=== PATIENT | male | born 2000 | race Two or more races ===

== ENCOUNTER 2022-02-28 09:56 | Emergency (ER) | payer BC, OTHER ==
[~2022-02-28] VITALS: Ht 170.2 cm; Wt 45.0 kg
[2022-02-28] MEDS ORDERED: PROCHLORPERAZINE EDISYLATE 5 MG/ML 2ML VIAL IV ONE (11:15)
[2022-02-28] MEDS ORDERED: SODIUM CHLORIDE 0.9% 1,000 ML IVB ONE (11:15)
[2022-02-28] MEDS ORDERED: MORPHINE SULFATE 4 MG/ML SYR/VIAL IV ONE (11:15)
[2022-02-28 11:55] LABS: Basophils # (auto) 0 10 ^3/uL (0-0.2); Basophils % (auto) 0.3 % (0.0-2.0); Eosinophils # (auto) 0 10 ^3/uL (0-0.8); Hematocrit 46.1 % (41.0-53.0); Lymphocytes # (auto) 1.8 10 ^3/uL (0.4-5.4); Lymphocytes % (auto) 19.2 % (10.0-50.0); Mean Corpuscular Hemoglobin 27.2 pg (28.0-32.0); Mean Corpuscular Hgb Conc. 32.6 g/dL (32.0-36.0); Mean Corpuscular Volume 83.2 fL (80.0-100.0); Monocytes # (auto) 1.4 10 ^3/uL (0-1.3); Monocytes % (auto) 15.4 % (0.0-12.0); Neutrophils # (auto) 6.1 10 ^3/uL (1.6-8.6); Neutrophils % (auto) 65.1 % (37.0-80.0); Nucleated Red Blood Cells % 0.2 %; Red Blood Cells 5.54 10^6/uL (4.5-5.90); Red Cell Distribution Width 14.9 % (11.8-14.3); White Blood Cell 9.3 10^3/uL (4.4-10.8)
[2022-02-28 12:56] LABS: Albumin 4.1 g/dL (3.4-5.0); Calcium 9.3 mg/dL (8.5-10.1); Potassium 4.3 mmol/L (3.5-5.1)
[2022-02-28 13:02] LABS: Alcohol, Urine < 3.0 mg/dL (0-10); Amphetamine Screen, Urine NEGATIVE (NEGATIVE); Barbiturate Scree,Urine NEGATIVE (NEGATIVE); Benzodiazephine Screen, Urine NEGATIVE (NEGATIVE); Cannabinoid Screen, Urine NEGATIVE (NEGATIVE); Cocaine Screen, Urine NEGATIVE (NEGATIVE); Opiate Scree,Urine NEGATIVE (NEGATIVE); Phencyclidine Screen, Urine NEGATIVE (NEGATIVE)
[2022-02-28 13:07] LABS: BUN/Creatinine Ratio 21.4; Bilirubin, Total 1.3 mg/dL (0.2-1.0); Total Protein 8.1 g/dL (6.4-8.2)
[2022-02-28 13:22] LABS: Urine Bacteria NONE SEEN /hpf (None Seen); Urine Blood Negative /uL (Negative); Urine Mucus FEW (None Seen); Urine Specific Gravity 1.037 (1.001-1.035); Urine WBC 2 /hpf (0 - 3)
[2022-02-28] MEDS ORDERED: PANT40TA2 PO (16:01)
[2022-02-28] MEDS ORDERED: ONDA-144 PO (16:01)
[2022-02-28 16:46] VITALS: BP 108/58
== END 2022-02-28 16:46 | disposition home or self-care (01) ==
LOC: ER 09:56
DX: R10.84 Generalized abdominal pain (principal); R11.2 Nausea with vomiting, unspecified; E86.0 Dehydration
CPT/HCPCS: 36415; 74176; 80053; 80307; 81001; 82150; 83690; 85025; 96361; 96374; 99284; J0780; J7030

== ENCOUNTER → 2022-03-25 | Outpatient (CLI) | payer BC ==
[~2022-03-25] MED LIST: ONDA-144 PO; PANT40TA2 PO
[2022-03-25 10:28] LABS: Basophils # (auto) 0 10 ^3/uL (0-0.2); Basophils % (auto) 0.7 % (0.0-2.0); Eosinophils # (auto) 0.2 10 ^3/uL (0-0.8); Eosinophils % (auto) 3.6 % (0.0-7.0); Hematocrit 44.1 % (41.0-53.0); Hemoglobin 14.1 g/dL (13.5-17.5); Lymphocytes % (auto) 36.7 % (10.0-50.0); Mean Corpuscular Hgb Conc. 32.1 g/dL (32.0-36.0); Mean Corpuscular Volume 84.3 fL (80.0-100.0); Monocytes # (auto) 0.7 10 ^3/uL (0-1.3); Monocytes % (auto) 12.6 % (0.0-12.0); Neutrophils # (auto) 2.5 10 ^3/uL (1.6-8.6); Neutrophils % (auto) 46.4 % (37.0-80.0); Nucleated Red Blood Cells % 0.2 %; Red Blood Cells 5.23 10^6/uL (4.5-5.90); Red Cell Distribution Width 15.3 % (11.8-14.3); White Blood Cell 5.4 10^3/uL (4.4-10.8)
[2022-03-25 10:56] LABS: Potassium 3.5 mmol/L (3.5-5.1)
[2022-03-25 11:01] LABS: Albumin 4.1 g/dL (3.4-5.0); BUN/Creatinine Ratio 21.8; Calcium 9.2 mg/dL (8.5-10.1); Total Protein 7.6 g/dL (6.4-8.2)
== END | disposition home or self-care (01) ==
LOC: LAB 10:12
PROVIDERS: ATTEND Nurse Practitioner Family
DX: R63.4 Abnormal weight loss (principal)
CPT/HCPCS: 36415; 80053; 84439; 84443; 85025

== ENCOUNTER → 2022-03-29 | Outpatient (CLI) | payer BC | END | disposition home or self-care (01) | LOC: XYW 08:43 | PROVIDERS: ATTEND Nurse Practitioner Family | DX: M95.4 Acquired deformity of chest and rib (principal) | CPT/HCPCS: 93306 ==

== ENCOUNTER 2024-12-05 18:22 | Emergency (ER) | payer OTHER, MEDICAID ==
[~2024-12-05] VITALS: Ht 172.7 cm; Wt 56.8 kg
--- NOTE | 2024-12-05 18:53 | ED.PDOC ---
History of Present Illness HPI Comments 24-year-old male with a history of autism spectrum disorder, migraines and asthma brought in by EMS from his workplace after a syncopal episode. 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 He had a witnessed syncopal episode, reported by coworkers to have fallen to his knees but was caught by co workers and assisted to the ground. Patient denies any head or other injury. Patient was reportedly unconscious for approximately 2 minutes before spontaneously regaining consciousness. Currently patient is complaining of an occipital headache. He does have history of migraines and a "brain cyst", however states the current pain is not typical of his migraines. Blood sugar on scene was 79, with a blood pressure of 113/78 mm Hg. Chief Complaint: Syncope Time Seen by MD: 19:02 Reviewed Notes: Nurses Notes Allergies: Coded Allergies: NO KNOWN ALLERGIES (Unverified , 02/28/22) Home Meds Active Scripts Ondansetron (Zofran) 4 Mg Tab, 1 TAB PO Q6HR, #20 TAB Prov:DOLLY MENDES MD 02/28/22 Pantoprazole Sodium Sesquihydr (Protonix) 40 Mg Tab, 40 MG PO DAILY, #30 TAB Prov:DOLYL MENDES MD 02/28/22 Information Source: Patient, Emergency Med Personnel Mode of Arrival: EMS Severity: Moderate Timing: Minutes Prehospital treatment: Accucheck, IVF Past Medical History PAST MEDICAL HISTORY: Asthma Past Medical History (Other): Migraine headaches, Brain Cyst, Autism spectrum disorder Surgical History: Denies all surgeries Family History Family History: Reviewed,noncontributory to illness Social History Smoker: Non-Smoker Alcohol: Occasionally Drugs: Denies Drug Use Lives In: Home Constitutional: reports: diaphoresis, weakness; denies: chills, fatigue, fever, malaise, sweats, others EENTM: denies: blurred vision, double vision, ear bleeding, ear discharge, ear drainage, ear pain, ear ringing, eye pain, eye redness, hearing loss, mouth pain, mouth swelling, nasal discharge, nose bleeding, nose congestion, nose pain, photophobia, tearing, throat pain, throat swelling, voice changes, others Respiratory: denies: cough, hemoptysis, orthopnea, SOB at rest, shortness of breath, SOB with excertion, stridor, wheezing, others Cardiovascular: denies: chest pain, dizzy spells, diaphoresis, Dyspnea on exert ion, edema, irregular heart beat, left arm pain, lightheadedness, palpitations, PND, syncope, others Gastrointestinal: denies: abdomen distended, abdominal pain, blood streaked bowels, constipated, diarrhea, dysphagia, difficulty swallowing, hematemesis, melena, nausea, poor appetite, poor fluid intake, rectal bleeding, rectal pain, vomiting, others Genitourinary: denies: burning, dysuria, flank pain, frequency, hematuria, incontinence, penile discharge, penile sore, pain, testicle pain, testicle swelling, urgency, others Neurological: reports: dizziness, fainting, headache (Occipital); denies: left sided numbness, left sided weakness, numbness, paresthesia, pre-existing deficit, right sided numbness, right sided weakness, seizure, speech problems, tingling, tremors, weakness, others Musculoskeletal: denies: back pain, gout, joint pain, joint swelling, muscle p ain, muscle stiffness, neck pain, others Integumetry: denies: bruises, change in color, change in hair/nails, dryness, laceration, lesions, lumps, rash, wounds, others Allergic/Immunocompromised: denies: Difficulty Healing, Frequent Infections, Hives, Itching, others Hematologic/Lymphatic: denies: anemia, blood clots, easy bleeding, easy bruising, swollen glands, others Endocrine: denies: excessive hunger, excessive sweating, excessive thirst, excessive urination, flushing, intolerance to cold, intolerance to heat, unexplained weight gain, unexplained weight loss, others Psychiatric: denies: anxiety, bipolar disorder, depression, hopeless, panic disorder, schizophrenia, sleepless, suicidal, others Physical Exam General Appearance: No Apparent Distress HEENT: PERRL/EOMI, Other (No facial asymmetry. Moist mucous membranes. No tenderness.) Neck: Full Range of Motion, Non-Tender, Normal Inspection, Supple Respiratory: Lungs Clear, No Accessory Muscle Use, No Respiratory Distress Cardiovascular: No Edema, No JVD, Regular Rate/Rhythm Breast Exam: Deferred Gastrointestinal: Non Tender, Soft Genitalia: Deferred Pelvic: Deferred Rectal: Deferred Extremities: Normal inspection, Normal range of motion, Non-tender, No pedal edema Neurologic: Alert (Oriented x4), Normal Affect, Normal Mood, Other (Ambulatory) Cerebellar Function: NOT DONE Reflexes: NOT DONE Skin: Dry, Normal Color, Warm Lymphatic: NOT DONE Was a procedure done? Was a procedure done?: No EKG EKG : Comments Sinus rhythm, rate 93, normal [place] and QRS intervals, QTC 469,, left axis deviation, normal QRS complex, nonspecific T changes. Differential Dx Considerations may include: Vasovagal, orthostasis/hypovolemia, arrhythmia, TIA, complication of brain cyst, intracranial hemorrhage, among others X-Ray, Labs, Meds, VS Vital Signs Date Time Temp Pulse Resp B/P (MAP) Pulse Ox O2 Delivery O2 Flow Rate FiO2 12/05/24 20:11 93 12/05/24 19:14 86 14 97 Room Air* 0 21 12/05/24 19:11 97.7 86 14 118/78 (91) 97 97.7 12/05/24 19:10 87 18 121/72 (88) 98 12/05/24 18:45 97.7 96 97 117/78 (91) 18 97.7 Lab Test 12/05/24 20:17 12/05/24 19:57 12/05/24 18:55 Range/Units Urine Color Light-yellow Yellow Urine Clarity Clear Clear Urine pH 6.5 5.0-9.0 Urine Specific [place] 1.020 1.001-1.035 Urine Protein Negative Negative Urine Ketones Negative Negative Urine Blood Negative Negative /uL Urine Nitrite Negative Negative Urine Bilirubin Negative Negative Urine Urobilinogen Normal Negative mg/dL Urine Leukocyte Esterase Negative Negative /uL Urine RBC 1 0 - 3 /hpf Urine Microscopic WBC 1 0-3 /HPF Urine Squamous Epithelial Cells None seen <5 /hpf Urine Bacteria None seen None Seen /hpf Urine Mucus Few None Seen Urine Glucose Normal Normal mg/dL POC Glucose 94 70-106 mg/dl Troponin I High Sensitivity < 3 L < 3 L </=54 ng/L White Blood Count 8.1 4.4-10.8 10^3/uL Red Blood Count 4.93 4.5-5.90 10^6/uL Hemoglobin 14.0 13.5-17.5 g/dL Hematocrit 41.8 41.0-53.0 % Mean Corpuscular Volume 84.9 80.0-100.0 fL Mean Corpuscular Hemoglobin 28.4 28.0-32.0 pg Mean Corpuscular Hemoglobin Concent 33.5 32.0-36.0 g/dL Red Cell Distribution Width 14.1 11.8-14.3 % Platelet Count 175 140-450 10^3/uL Mean Platelet Volume 10.4 6.9-10.8 fL Neutrophils (%) (Auto) 66.3 37.0-80.0 % Lymphocytes (%) (Auto) 20.4 10.0-50.0 % Monocytes (%) (Auto) 9.0 0.0-12.0 % Eosinophils (%) (Auto) 3.5 0.0-7.0 % Basophils (%) (Auto) 0.8 0.0-2.0 % Neutrophils # (Auto) 5.4 1.6-8.6 10 ^3/uL Lymphocytes # (Auto) 1.7 0.4-5.4 10 ^3/uL Monocytes # (Auto) 0.7 0-1.3 10 ^3/uL Eosinophils # (Auto) 0.3 0-0.8 10 ^3/uL Basophils # (Auto) 0.1 0-0.2 10 ^3/uL Nucleated Red Blood Cells 0.1 % Sodium Level 141 136-145 mmol/L Potassium Level 3.9 3.5-5.1 mmol/L Chloride Level 107 98-107 mmol/L Carbon Dioxide Level 25 20-31 mmol/L Anion Gap 9 5-15 Blood Urea Nitrogen 22 9-23 mg/dL Creatinine 0.93 0.700-1.30 mg/dL Glomerular Filtration Rate Calc 118 >90 mL/min BUN/Creatinine Ratio 23.7 H 10.0-20.0 Serum Glucose 109 H 74-106 mg/dL Calcium Level 9.4 8.7-10.4 mg/dL B-Type Natriuretic Peptide 1.87 0-100 pg/mL Current Medications Medications (Trade) Dose Ordered Sig/Fredy Route Start Time Stop Time Status Last Admin Sodium Chloride 1,000 ml @ 1,000 mls/hr Q1H ONCE IV 12/05/24 19:00 12/05/24 19:59 DC 12/05/24 19:41 PROCEDURE(s): HWOCT - HEAD WITHOUT CONTRAST REASON: syncope ORDER NUMBER(s): [id number], ACCESSION NUMBER(s): [id number] CT HEAD WITHOUT CONTRAST INDICATION: syncope EXAM DATE: 12/05/2024 07:32 PM COMPARISON: Brain MRI 04/12/2024 RADIATION DOSE: CTDIvol: 52.09 mGy, DLP: 922.48 mGy*cm PROCEDURE: CT scans of the head were obtained from the vertex to the skull base. Sagittal and coronal reconstructions were provided. All CT scans at this medical facility are performed using dose modulation techniques as appropriate to a performed exam including the following: Automated exposure control was utilized; adjustment of the MA and/or KV according to patient size; and use of iterative reconstruction technique. FINDINGS: There is no acute intracranial hemorrhage, extraaxial fluid collection, mass effect, or midline shift. Ventricles are normal in size. Marco A cisterna magna is noted within the posterior fossa. The intraorbital structures are unremarkable. Minimal because of thickening of the ethmoid air cells. Paranasal sinuses and mastoid air cells are clear. The calvarium is intact. Irregularity of the nasal bones bilaterally, likely sequ elae prior injury. IMPRESSION: 1. No acute intracranial findings 2. Minimal chronic ethmoid air cell sinusitis 3. Old appearing nasal bone fracture X-Ray, Labs, Meds, VS Comment 24-year-old male with a history of autism spectrum disorder, brain cyst, migraines and asthma presenting after a syncopal episode and complaining of an occipital headache Vitals remarkable for Exam unremarkable Rhythm strip independently interpreted by me: Sinus rhythm, rate , no ectopy CT head IMPRESSION: 1. No acute intracranial findings 2. Minimal chronic ethmoid air cell sinusitis 3. Old appearing nasal bone fracture CBC, basic metabolic panel, BNP, troponin, UA unremarkable Patient treated with the following in the ED: Tylenol 975 mg p.o., 1 L 0.9 normal saline IV bolus On re-evaluation, patient states his headache has improved. Vitals were stable. He is neurologically intact. Hospitalization was considered, however patient had rapid improvement of his symptoms with treatment in the ED, and I no longer feel hospitalization is necessary. Patient now appears stable for discharge with close outpatient follow-up with his neurologist and primary physician. Time of 1ST Reevaluation: 18:48 Reevaluation 1ST: Unchanged Patient Education/Counseling: Diagnosis, Treatment Family Education/Counseling: Diagnosis, Treatment SEPSIS Sepsis Screen Physician Orders Electrocardigram (12/05/24 18:46) Head Without Contrast (12/05/24 18:46) Troponin-I Hs (12/05/24 21:46) Vital Signs Date Time Temp Pulse Resp B/P (MAP) Pulse Ox O2 Delivery O2 Flow Rate FiO2 12/05/24 20:11 93 12/05/24 19:14 86 14 97 Room Air* 0 21 12/05/24 19:11 97.7 86 14 118/78 (91) 97 97.7 12/05/24 19:10 87 18 121/72 (88) 98 12/05/24 18:45 97.7 96 97 117/78 (91) 18 97.7 Laboratory Tests Test 12/05/24 18:55 White Blood Count 8.1 10^3/uL (4.4-10.8) Medications Medications Dose Ordered Sig/Fredy Route Start Time Stop Time Status Last Admin Dose Admin Sodium Chloride 1,000 ml @ 1,000 mls/hr Q1H ONCE IV 12/05/24 19:00 12/05/24 19:59 DC 12/05/24 19:41 Departure 1 Departure Time of Disposition: 20:41 Impression: Primary Impression: Syncope Additional Impression: Headache Disposition: 01 HOME / SELF CARE / HOMELESS Condition: Stable Additional Instructions: Your blood and urine tests were unremarkable. Your head CT was unremarkable for any acute finding. There is no medication necessary at this time. Follow-up with your primary doctor and/ or your neurologist in 1-2 days. Drink plenty of liquids. Return to ER for persistent or worsening symptoms. Discharged With: Relative Critical Care Note Critical Care Time?: No Stability Stability form required: No Heart Score Heart Score: Heart Score Response (Comments) Value History N/A 0 EKG N/A 0 Age N/A 0 Risk Factors N/A 0 Troponin N/A 0 Total 0 I personally scribed for [facility] WOODS [facility] on 12/05/24 at 18:53. Electronically submitted by Eleazar Collins ([facility]). I personally scribed for ASPEN WOODS MD ([facility] on 12/05/24 at 19:03. Electronically submitted by Eleazar Collins ([facility]). I personally scribed for ASPEN WOODS MD ([facility] on 12/05/24 at 19:36. Electronically submitted by Eleazar Collins ([facility]). ASPEN WOODS MD Dec 05, 2024 18:53
[2024-12-05 19:09] LABS: Hematocrit 41.8 % (41.0-53.0); Hemoglobin 14.0 g/dL (13.5-17.5); Mean Corpuscular Hemoglobin 28.4 pg (28.0-32.0); Mean Corpuscular Volume 84.9 fL (80.0-100.0); Nucleated Red Blood Cells % 0.1 %
[2024-12-05 19:11] VITALS: TEMP 97.7
[2024-12-05 19:14] VITALS: PULSE 86; RESP 14; O2SAT 97
[2024-12-05 19:21] LABS: Chloride 107 mmol/L (98-107); Potassium 3.9 mmol/L (3.5-5.1); Sodium 141 mmol/L (136-145)
[2024-12-05 19:22] LABS: Anion Gap 9 (5-15); Carbon Dioxide 25 mmol/L (20-31)
[2024-12-05 19:23] LABS: Calcium 9.4 mg/dL (8.7-10.4)
[2024-12-05 19:28] LABS: BUN/Creatinine Ratio 23.7 (10.0-20.0); Blood Urea Nitrogen 22 mg/dL (9-23)
[2024-12-05 19:30] LABS: Glucose 109 mg/dL (74-106)
[2024-12-05] MEDS: SODIUM CHLORIDE 0.9% 1,000 ML IV ONE (19:41)
[2024-12-05] MEDS: ACETAMINOPHEN 650 mg PER 20.3 mL UD PO ONE (19:41)
[2024-12-05 19:44] VITALS: BP 118/78; RESP 15; O2SAT 99
[2024-12-05 20:11] VITALS: PULSE 93
--- NOTE | 2024-12-05 20:18 | DVH ---
CT HEAD WITHOUT CONTRAST INDICATION: syncope EXAM DATE: 12/05/2024 07:32 PM COMPARISON: Brain MRI 04/12/2024 RADIATION DOSE: CTDIvol: 52.09 mGy, DLP: 922.48 mGy*cm PROCEDURE: CT scans of the head were obtained from the vertex to the skull base. Sagittal and coronal reconstructions were provided. All CT scans at this medical facility are performed using dose modulation techniques as appropriate t o a performed exam including the following: Automated exposure control was utilized; adjustment of th e MA and/or KV according to patient size; and use of iterative reconstruction technique. FINDINGS: There is no acute intracranial hemorrhage, extraaxial fluid collection, mass effect, or midline shift . Ventricles are normal in size. Marco A cisterna magna is noted within the posterior fossa. The intraorbital structures are unremarkable. Minimal because of thickening of the ethmoid air cells. Paranasal sinuses and mastoid air cells are clear. The calvarium is intact. Irregularity of the nasa l bones bilaterally, likely sequelae prior injury. IMPRESSION: 1. No acute intracranial findings 2. Minimal chronic ethmoid air cell sinusitis 3. Old appearing nasal bone fracture
[2024-12-05 20:41] LABS: Urine Protein, UAD Negative (Negative)
--- NOTE | 2024-12-07 06:41 | ECG ---
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
== END 2024-12-05 21:25 | disposition home or self-care (01) ==
LOC: ER 18:22 → EDBD 18:22 → ER 21:25
DX: R55 Syncope and collapse (principal); R51.9 Headache, unspecified; F84.0 Autistic disorder; F10.90 Alcohol use, unspecified, uncomplicated; J45.909 Unspecified asthma, uncomplicated; Z79.899 Other long term (current) drug therapy; Y90.9 Presence of alcohol in blood, level not specified
CPT/HCPCS: 36415; 70450; 80048; 81001; 82947; 83880; 84484; 85025; 93005; 96360; 96361; 99284; J7030; 82962